=== PATIENT | female | born 1985 | race African-American/Black ===

== ENCOUNTER → 2024-02-13 | Day surgery (SDC) | payer OTHER ==
[~2024-02-13] MED LIST: FENTANYL CITRATE/PF 100MCG/2 ML INJ ONE; GLYCOPYRROLATE INJ 0.2 MG/ML VIAL ONE; LIDOCAINE HCL 2% LOCAL INJ 5 ML SDV VIAL INJ ONE; ONDANSETRON HCL INJ 2MG/ML 2ML 2 MG/ML VIAL ONE; PROPOFOL IV EMULSION 10 MG/ML 20 ML VIAL ONE
[2024-02-13] MEDS: LACTATED RINGER'S 1,000 ML ONE (07:20)
[2024-02-13 09:00] VITALS: TEMP 97.4
[2024-02-13 09:30] VITALS: BP 118/83; PULSE 59; RESP 16; O2SAT 99
== END | disposition home or self-care (01) ==
LOC: ENDO 06:43
PROVIDERS: ATTEND Surgery
DX: K21.00 Gastro-esophageal reflux disease with esophagitis, without bleeding (principal); K29.50 Unspecified chronic gastritis without bleeding; K44.9 Diaphragmatic hernia without obstruction or gangrene; K31.89 Other diseases of stomach and duodenum; R11.2 Nausea with vomiting, unspecified; E66.9 Obesity, unspecified; Z68.43 Body mass index [BMI] 50.0-59.9, adult; Z71.3 Dietary counseling and surveillance; Z98.84 Bariatric surgery status; G47.33 Obstructive sleep apnea (adult) (pediatric); G89.29 Other chronic pain
CPT/HCPCS: 43239; 81025; 88305; 88342; J2003; J2405; J2704; J3010; J7121; 43235

== ENCOUNTER 2024-04-23 05:47 | Inpatient (IN) | payer OTHER ==
[~2024-04-23] VITALS: Ht 149.9 cm; Wt 134.3 kg
[2024-04-23] MEDS: LACTATED RINGER'S 1,000 ML ONE (06:18)
[2024-04-23] MEDS: CEFAZOLIN SODIUM 2 GM ONE (06:19)
[2024-04-23] MEDS ORDERED: LIDOCAINE HCL 2% LOCAL INJ 5 ML SDV VIAL INJ ONE (07:08)
[2024-04-23] MEDS ORDERED: PROPOFOL IV EMULSION 10 MG/ML 20 ML VIAL ONE ×2 (07:08→10:03)
[2024-04-23] MEDS ORDERED: ROCURONIUM BROMIDE 1 ML IV ONE ×2 (07:09→08:14)
[2024-04-23] MEDS ORDERED: FENTANYL CITRATE/PF 100MCG/2 ML INJ ONE ×2 (07:09→10:04)
[2024-04-23] MEDS ORDERED: SUCCINYLCHOLINE CHLORIDE 20 MG/ML 10ML VIAL ONE ×2 (07:35→12:41)
[2024-04-23] MEDS ORDERED: METOCLOPRAMIDE HCL 10 MG/2ML VIAL ONE (07:55)
[2024-04-23] MEDS ORDERED: DEXAMETHASONE SOD PHOS INJ 4 MG/ML SDV ONE (07:55)
[2024-04-23] MEDS: SCOPOLAMINE 1 MG PATCH TOP SCH (08:00)
[2024-04-23] MEDS ORDERED: ACETAMINOPHEN 1000 MG/100 ML 100 ML IV ONE (08:03)
[2024-04-23] MEDS ORDERED: PHENYLEPHRINE HCL 1% 10 MG/ML VIAL ONE (08:25)
[2024-04-23] MEDS ORDERED: SUGAMMADEX SODIUM 200 MG/2 ML VIAL IV ONE (08:26)
[2024-04-23] MEDS: FENTANYL CITRATE/PF 100MCG/2 ML INJ ONE (10:40)
[2024-04-23] MEDS: ONDANSETRON HCL INJ 2MG/ML 2ML 2 MG/ML VIAL IV PRN (11:05)
[2024-04-23] MEDS: SCOPOLAMINE 1 MG PATCH ONE (11:48)
[2024-04-23] MEDS: ONDANSETRON HCL INJ 2MG/ML 2ML 2 MG/ML VIAL ONE (11:48)
[2024-04-23] MEDS: Morphine 2mg Syringe 2 MG/ML SYR IV PRN (11:53)
[2024-04-23 12:03] VITALS: BP 106/56; PULSE 77; RESP 20; TEMP 97.9; O2SAT 95
[2024-04-23 12:09] VITALS: BP 106/56; PULSE 77; RESP 20; TEMP 97.9; O2SAT 95
[2024-04-23 12:10] VITALS: BP 106/56; PULSE 77; RESP 20; TEMP 97.9; O2SAT 95
[2024-04-23 12:25] VITALS: PULSE 76; RESP 16; O2SAT 94
[2024-04-23 15:27] VITALS: BP 121/81; PULSE 88; RESP 20; TEMP 98.3; O2SAT 97
[2024-04-23] MEDS: LACTATED RINGER'S 1,000 ML IV SCH (15:50)
[2024-04-23] MEDS: HYDROCODONE/APAP 7.5MG-325MG 1 EA TAB PO PRN (18:50)
[2024-04-23 20:00] VITALS: BP 135/79; PULSE 81; RESP 18; TEMP 97.6; O2SAT 97
[2024-04-23] MEDS ORDERED: PROMETHAZINE 12.5MG/ NACL 0.9% 12.5 MG/50 ML BAG IV PRN (20:45)
[2024-04-23] MEDS: PROMETHAZINE 12.5MG/ NACL 0.9% 12.5 MG/50 ML BAG IV ONE (20:53)
[2024-04-23] MEDS: ENOXAPARIN SOD INJ 40 MG/0.4 ML SYR SC SCH (20:53)
[2024-04-23] MEDS: PROMETHAZINE 12.5MG/ NACL 0.9% 50 ML ONE (21:10)
[2024-04-24] VITALS: BP 128/81; PULSE 65; RESP 17; TEMP 97.8; O2SAT 99
[2024-04-24 04:00] VITALS: BP 122/68; PULSE 62; RESP 17; TEMP 98.1; O2SAT 99
[2024-04-24 05:33] LABS: BASOPHILS % 0.1 % (0.0-1.0); HEMATOCRIT 34.5 % (34.2-44.1); LYMPHOCYTES # (AUTO) 2.6 (1.0-3.2); LYMPHOCYTES % 20.6 % (18.0-39.1); MEAN CORPUSCULAR HEMOGLOBIN 30.6 pg (28-32); MEAN CORPUSCULAR HGB CONC 31.9 g/dL (31-35); MEAN CORPUSCULAR VOLUME 96.1 fL (81-99); MONOCYTES # (AUTO) 0.9 (0.2-0.8); NEUTROPHILS # (AUTO) 9.1 (2.1-6.9); NEUTROPHILS % 71.9 % (38.7-80.0); PLATELET COUNT 339 x10e3/uL (140-360); RED BLOOD COUNT 3.59 x10e6/uL (3.6-5.1); WHITE BLOOD COUNT 12.61 x10e3/uL (4.8-10.8)
[2024-04-24 06:01] LABS: ALBUMIN 3.3 g/dL (3.5-5.0); ALBUMIN/GLOBULIN RATIO 0.9 (0.8-2.0); ANION GAP 17.5 mmol/L (8-16); BILIRUBIN,TOTAL 0.4 mg/dL (0.2-1.2); CALCIUM 8.8 mg/dL (8.4-10.2); CREATININE, SERUM 0.68 mg/dL (0.57-1.11); MAGNESIUM 1.8 MG/DL (1.3-2.1); POTASSIUM 3.5 mmol/L (3.5-5.1); TOTAL PROTEIN 7.1 g/dL (6.5-8.1)
[2024-04-24 07:50] VITALS: BP 117/70; PULSE 58; RESP 21; TEMP 98.9; O2SAT 100
[2024-04-24 08:00] VITALS: BP 117/70; PULSE 58; RESP 21; TEMP 98.9; O2SAT 100
[2024-04-24] MEDS: HYDROMORPHONE 1MG/1ML INJ IV PRN (08:29)
[2024-04-24 08:40] VITALS: PULSE 79; RESP 19; O2SAT 96
[2024-04-24 11:19] VITALS: BP 104/74; PULSE 59; RESP 20; TEMP 97.3; O2SAT 100
== END 2024-04-24 15:49 | disposition home or self-care (01) | DRG 621 ==
LOC: OR 05:47 → PACU V 07:46 → MED/SURG 11:15 → OBSVTOIN 04-24 13:20
PROVIDERS: ADMIT Internal Medicine; ATTEND Internal Medicine
PROC: 0FB24ZX Excision of Left Lobe Liver, Percutaneous Endoscopic Approach, Diagnostic (ICD-10-PCS; 2024-04-23)
PROC: 0D164ZA Bypass Stomach to Jejunum, Percutaneous Endoscopic Approach (ICD-10-PCS; principal; 2024-04-23 07:47)
PROC: 0BQT4ZZ Repair Diaphragm, Percutaneous Endoscopic Approach (ICD-10-PCS; 2024-04-23 07:47)
DX: E66.01 Morbid (severe) obesity due to excess calories (principal); Z68.43 Body mass index [BMI] 50.0-59.9, adult; K44.9 Diaphragmatic hernia without obstruction or gangrene; R11.2 Nausea with vomiting, unspecified; Z98.84 Bariatric surgery status; K21.9 Gastro-esophageal reflux disease without esophagitis; K76.0 Fatty (change of) liver, not elsewhere classified; R13.10 Dysphagia, unspecified
CPT/HCPCS: 36415; 80053; 81025; 83735; 84100; 85025; 88307; 88313; 94799; G0378; J0330; J1100; J1171; J1650; J2003; J2270; J2371; J2405; J2470; J2550; J2765